=== PATIENT | female | born 1940 | race Caucasian/White ===

== ENCOUNTER 2017-07-25 15:00 | Observation (INO) ==
--- NOTE | 2017-07-25 15:19 | Emergency Department Note ---
Disposition Clinical Impression: Fall Disposition: Still a Patient Referrals: Monique Lay BIO MEDICAL TECHNICIAN [Primary Care Provider] - Forms: ED Satisfaction Letter General Adult HPI - General Chief complaint: ED Fall Stated complaint: Fall 8 Weeks ago/Headache since fall Time Seen by Provider: 07/25/17 15:05 Source: patient, EMS Limitations: no limitations Nursing Notes Reviewed: Yes Vital Signs Reviewed: Yes - History of Present Illness HPI Narrative: Ms. Martinez, extending 7-year-old female, presents from home via EMS for evaluation of a headache. Onset a few weeks ago after a fall in which she tripped and tumbled down a hill. Soon after the fall, she was evaluated by her ironer or presser who noted scleral hemorrhage. Patient did not present and has not been evaluated in the emergency department since the fall. Patient notes difficulty with ambulation described as her legs are weak and occasionally giving out. Regarding her headache, she describes it as frontal and seen posteriorly in the midline distribution down her neck. Throbbing, constant, present on waking up. No history of migraines. Patient's history of CVA and is currently on aspirin daily. ROS: Positive: Extremity weakness, headache with photophobia, neck pain Negative: Dyspnea, chest pain, back pain, diaphoresis. No other musculoskeletal complaints. Pain Scale: 10 - Related Data Home Medications Medication Instructions Recorded Confirmed Aspirin [Aspirin] 81 mg PO DAILY 08/27/15 08/27/15 ClonazePAM [Klonopin] 1 mg PO HS 08/27/15 08/27/15 Metoprolol [Lopressor] 100 mg PO DAILY 08/27/15 08/27/15 Sertraline [Zoloft] 100 mg PO HS 08/27/15 08/27/15 Previous Rx's Medication Instructions Recorded Ondansetron HCl [Zofran] 4 mg PO Q6HR PRN #10 tablet 08/27/15 levoFLOXacin [Levaquin] 500 mg PO DAILY #7 tablet 12/01/15 Clindamycin [Cleocin] 150 mg PO Q6HR #8 capsule 03/31/16 OxyCODONE Immed Rel [Roxicodone 5 5 - 10 mg PO Q6HR PRN #30 tablet 03/31/16 MG] predniSONE [Prednisone] 40 mg PO DAILY #10 tablet 08/23/16 Allergies Allergy/AdvReac Type Severity Reaction Status Date / Time milk Allergy Nausea Verified 12/01/15 16:18 peanuts Allergy Hives Uncoded 12/01/15 16:18 Past Medical History - Past Medical History Medical history: Reports: COPD, CVA, DVT, hypertension Surgical history: Reports: appendectomy, cholecystectomy, hysterectomy Psychiatric history: Reports: no psych history - Social History Smoking Status: Never smoker Smokeless Tobacco Status: No Alcohol use: Reports: none Drug use: Reports: none Physical Exam Vital Signs Reviewed General: Patient is alert, oriented, and in no acute distress. HEENT: No facial asymmetry. Head is normocephalic and atraumatic. PERRLA, EOMI. Nasal turbinates moist and pink. Posterior pharynx without exudates or cobblestoning. No lymphadenopathy. Cardiovascular: Heart regular rate and rhythm without clicks, rubs, gallops, or murmurs. No JVD. PMI nondisplaced. Respiratory: Symmetric chest rise with good respiratory effort. Bilateral breath sounds are clear without wheezing, crackles, or rhonchi. Abdomen: Bowel sounds present normoactive x-4 quadrants. Abdomen is soft, nondistended, and nontender. No organomegaly noted. Musculoskeletal: Muscle strength 5/5 and symmetric bilaterally in upper and lower extremities. DTRs 2/4 and symmetric bilaterally in upper and lower extremities. No midline C-spine, T-spine, L-spine, sacral tenderness. Neuro: Cranial nerves II through XII without deficit. Sensation light touch intact. Psych: Patient's affect is appropriate for situation. - General Limitations: no limitations General appearance: alert Course Course Narrative: Clinical concern is for possible C-spine fracture as well as intracranial bleed. Will CT head and neck. If negative, will symptomatically manage patient 's headache. Patient's imaging is negative for acute intracranial or cervical spine process as detailed below. While in the ER, she flagged down a staff member and noted she had chest pain. Will initiate cardiac workup. Patient signed out to the night team, Dr. Nickerson and Dr. Juarez, pending results of cardiac workup. Head CT 07/25/17 15:19 IMPRESSION: 1. No acute intracranial abnormality. D/ / London Goss MD / London Goss MD Interpreting Provider: London Goss MD Cervical Spine CT 07/25/17 15:27 IMPRESSION: 1. No acute abnormality of the cervical spine. 2. Chronic degenerative changes are discussed above. D/ / Chris Bray MD / Chris Bray MD Interpreting Provider: Chris Bray MD Vital Signs Temperature 98.2 F 07/25/17 15:02 Pulse Rate 61 07/25/17 15:02 Respiratory Rate 16 07/25/17 15:02 Blood Pressure 159/84 07/25/17 15:02 O2 Sat by Pulse Oximetry 96 07/25/17 15:02 Temperature 98.2 F 07/25/17 15:02 Pulse Rate 61 07/25/17 15:02 Respiratory Rate 16 07/25/17 15:02 Blood Pressure 159/84 07/25/17 15:02 O2 Sat by Pulse Oximetry 96 07/25/17 15:02 Oxygen Delivery Oxygen Delivery Room Air Medical Decision Making - Lab Data Result diagrams: 07/25/17 16:10 Lab Results 07/25/17 07/25/17 Range/Units 16:10 18:51 Sodium 142 (136-145) mEq/L Potassium 4.2 (3.5-4.5) mEq/L Chloride 107 (98-109) mEq/L Carbon Dioxide 27 (19-29) mEq/L BUN 15 (7-20) mg/dL Creatinine 0.83 (0.57-1.11) mg/dL Est GFR ( Amer) > 60 (> 60) Est GFR (Non-Af Amer) > 60 (> 60) BUN/Creatinine Ratio 18 (6-26) Glucose 90 (70-99) mg/dL Calculated Osmolality 294 (280-300) Calcium 9.3 (8.6-10.8) mg/dL Troponin I 0.00 (0-0.03) ng/mL Attestation Statement - Attestation Attestation: I examined this patient and my medical decision-making was reviewed with the Resident Physician. I agree with the documented findings, disposition and treatment plan as described except to the extent set forth below. Female patient is record 4 weeks ago. No anticoagulation use. Now having head and neck pain. CT scan of head and neck shows no acute findings. Will be medicated for headache. Postconcussive instructions and follow up with neurology provided
[2017-07-25 16:59] LABS: BUN/Creatinine Ratio 18 (6-26); Blood Urea Nitrogen 15 mg/dL (7-20); Calcium 9.3 mg/dL (8.6-10.8); Carbon Dioxide 27 mEq/L (19-29); Chloride 107 mEq/L (98-109); Glucose 90 mg/dL (70-99); Osmolality,Calculated 294 (280-300); Potassium 4.2 mEq/L (3.5-4.5); Sodium 142 mEq/L (136-145); eGFR For African Americans > 60 (> 60); eGFR For Non-African Americans > 60 (> 60)
[2017-07-25] MEDS ORDERED: Ketorolac 30 MG/ML VIAL IVP ONE (17:29)
[2017-07-25] MEDS ORDERED: Prochlorperazine 10 MG/2 ML VIAL IVP STA (17:30)
--- NOTE | 2017-07-25 19:06 | Emergency Department Note ---
Disposition Clinical Impression: Fall Qualifiers: Encounter type: subsequent encounter Qualified Code(s): W19.XXXD - Unspecified fall, subsequent encounter Chest pain Qualifiers: Chest pain type: unspecified Qualified Code(s): R07.9 - Chest pain, unspecified Disposition: Admitted As Inpatient Condition: Undetermined Time of Disposition: 20:09 General Adult HPI - General Chief complaint: ED Fall Stated complaint: Fall 8 Weeks ago/Headache since fall Time Seen by Provider: 07/25/17 15:05 Source: patient, EMS Mode of arrival: ambulatory Limitations: no limitations Nursing Notes Reviewed: Yes Vital Signs Reviewed: Yes - History of Present Illness HPI Narrative: 77-year-old female with history of hypertension and hyperlipidemia arrives to [facility] emergency department. Patient was signed out to me by the day team. The patient initially arrived roughly 5 weeks after a fall striking her head on the ground without LOC. The patient has been complaining of numerous days of headache since then. The patient actually has been evaluated by Dr. Sabillon in neurology who stated that there was no etiology. The patient received a CT scan of her head as well. The patient denies any other complaints upon arrival but during ED visit the patient states that she began complaining of left-sided chest pain with associated dyspnea. No other associated symptoms at that time. The patient denies any other complaints and is resting comfortably in bed. Onset (ago): minute(s) (30) Location: chest Radiation: other (Jaw) Pain Severity: moderate, severe Pain Scale: 10 Quality: crushing, dull Consistency: constant Improves with: nothing Worsens with: nothing Associated symptoms: Reports: chest pain, shortness of breath Treatments Prior to Arrival: none - Related Data Home Medications Medication Instructions Recorded Confirmed Aspirin [Aspirin] 81 mg PO DAILY 08/27/15 07/25/17 ClonazePAM [Klonopin] 1 mg PO BID PRN 08/27/15 07/25/17 Sertraline [Zoloft] 100 mg PO HS 08/27/15 07/25/17 Acetaminophen [Tylenol] 325 mg PO Q6HR PRN 07/25/17 07/25/17 Metoprolol Succinate 100 mg PO DAILY 07/25/17 07/25/17 Multivitamin [Multi-Day Vitamins] 1 each PO DAILY 07/25/17 07/25/17 Allergies Allergy/AdvReac Type Severity Reaction Status Date / Time milk Allergy Nausea Verified 12/01/15 16:18 peanuts Allergy Hives Uncoded 12/01/15 16:18 All systems ED: reviewed and negative except as stated. Constitutional: Denies: fever, chills, weakness, weight change Eyes: Denies: eye pain, eye discharge, vision change ENT ED: Denies: ear pain, throat pain, dental pain, hearing loss, epistaxis, congestion, dysphagia Cardiovascular: Reports: chest pain. Denies: palpitations, dyspnea on exertion , edema, syncope Respiratory: Reports: dyspnea. Denies: cough, wheezes, hemoptysis, stridor Gastrointestinal: Denies: abdominal pain, nausea, vomiting, diarrhea, constipation, hematemesis, melena, hematochezia Genitourinary: Denies: dysuria, frequency, hematuria, discharge Musculoskeletal: Denies: back pain, neck pain, arthralgia, myalgia Neurological: Reports: headache. Denies: weakness, numbness, paresthesias, confusion, abnormal gait, vertigo Past Medical History - Past Medical History Attestation: Yes The following information was validated with the patient. Source: patient Medical history: Reports: COPD, CVA, DVT, hypertension Surgical history: Reports: appendectomy, cholecystectomy, hysterectomy Psychiatric history: Reports: no psych history - Social History Smoking Status: Never smoker Smokeless Tobacco Status: No Alcohol use: Reports: none Drug use: Reports: none Physical Exam - General Limitations: no limitations General appearance: alert, in no apparent distress - Head Head exam: atraumatic, normocephalic, normal inspection - Eye Eye exam: Present: normal appearance, PERRL, EOMI - ENT ENT exam: normal exam, normal oropharynx, mucous membranes moist - Neck Neck exam: Present: normal inspection, full ROM, trachea midline - Chest Chest inspection: Present: normal inspection, symmetric chest wall rise - Respiratory Respiratory exam: Present: normal lung sounds bilaterally - Cardiovascular Cardiovascular exam: Present: regular rate, normal rhythm, normal heart sounds - Abdominal Exam Abdominal exam: Present: soft, Non-Tender. Absent: tenderness, distention, guarding, rebound, rigidity - Extremities Exam Extremities exam: Present: normal inspection, full ROM. Absent: tenderness, pedal edema - Neurological Exam Neurological exam: Present: alert, oriented X3, CN II-XII intact, normal gait - Skin Skin exam: Present: warm, dry, intact, normal color Course Vital Signs Temperature 98.2 F 07/25/17 15:02 Pulse Rate 61 07/25/17 15:02 Respiratory Rate 16 07/25/17 15:02 Blood Pressure 159/84 07/25/17 15:02 O2 Sat by Pulse Oximetry 96 07/25/17 15:02 Temperature 98.2 F 07/25/17 15:02 Pulse Rate 61 07/25/17 15:02 Respiratory Rate 16 07/25/17 15:02 Blood Pressure 159/84 07/25/17 15:02 O2 Sat by Pulse Oximetry 96 07/25/17 15:02 Oxygen Delivery Oxygen Delivery Room Air Medical Decision Making - MDM Narrative Medical decision making narrative: Given patient's previous medical history of hypertension hyperlipidemia combined with her age, we will admit the patient to the hospital for training troponins and further workup. The patient agrees to this plan. We will administer aspirin here in the emergency department. EKG demonstrates no acute changes, troponin is negative as well as BMP for any acute changes. The patient is accepted by Dr. Stewart. - Medical Records Medical records reviewed: Yes I reviewed the patient's medical records. - Lab Data Lab results reviewed: Yes I reviewed the patient's lab results. Result diagrams: 07/25/17 16:10 Lab Results 07/25/17 07/25/17 Range/Units 16:10 18:51 Sodium 142 (136-145) mEq/L Potassium 4.2 (3.5-4.5) mEq/L Chloride 107 (98-109) mEq/L Carbon Dioxide 27 (19-29) mEq/L BUN 15 (7-20) mg/dL Creatinine 0.83 (0.57-1.11) mg/dL Est GFR ( Amer) > 60 (> 60) Est GFR (Non-Af Amer) > 60 (> 60) BUN/Creatinine Ratio 18 (6-26) Glucose 90 (70-99) mg/dL Calculated Osmolality 294 (280-300) Calcium 9.3 (8.6-10.8) mg/dL Troponin I 0.00 (0-0.03) ng/mL - Radiology Data Radiology results reviewed: Yes I reviewed the patient's radiology results. - EKG Data EKG #1 EKG attestation: Yes I reviewed and interpreted this EKG. EKG results narrative: Heart rate 56 bpm. ND interval 178 ms. QTC 417 ms. Normal axis. Sinus bradycardia. No ST elevation or ST depression noted. Similar EKG from 2016. No acute changes noted. Attestation Statement - Attestation Attestation: I, Gray Nickerson MD, personally evaluated this patient and discussed their management with the resident physician. I reviewed the resident's note and agree with the documented findings, medical decision making, and plan of care. This patient was signed out at shift change from Dr. Taylor and Dr. Carnes. Please refer to their notes for complete details of history and physical examination. Patient presented with complaint of headaches after a fall several weeks ago. She had a head CT and cervical spine CT which was negative regarding this complaint. Patient however also complained of intermittent substernal and left- sided chest pain which she describes as like a brick on her chest. She denies any chest pain at present. She states that when she gets these episodes of chest pain last about an hour and she also has tightness in her throat. No shortness of breath. She does have some episodes of diaphoresis but not necessarily associated with the chest pain. No radiation down the arm or to the back. She denies any prior history of heart disease. At shift change she is awaiting workup and final disposition. On examination patient is a well-developed well-nourished elderly female in no acute distress. She is alert and oriented 3. There is no cyanosis. There is some mild tenderness to palpation over the left anterior chest wall. Breath sounds are clear and equal bilaterally. Heart regular rate and rhythm. Abdomen is soft and nontender with normal bowel sounds. No pedal edema. No gross focal neurological deficits. Labs reviewed. Troponin 0.00. The hospitalist, Dr. Hamilton, was consulted and accepted admission of the patient. Heart Score - Score History: Slightly Suspicious EKG: Normal Age: Greater than 65 Risk Factors: 1-2 risk factors Troponin: Less than normal limit HEART Score Total: 3
[2017-07-25] MEDS ORDERED: Aspirin 325 MG TABLET PO ONE (20:26)
[2017-07-25] MEDS ORDERED: Acetaminophen 325 MG TABLET PO PRN (22:55)
[2017-07-25] MEDS ORDERED: Naloxone 0.4 MG/ML INJ IVP PRN (22:55)
[2017-07-25] MEDS ORDERED: clonazePAM 1 MG TABLET PO PRN (22:59)
[2017-07-26 02:11] LABS: Basophils % 0.2 %; Eosinophils # 0.3 K/mcL (0.0-0.6); Eosinophils % 4.2 %; Hematocrit 41.5 % (35.3-44.9); Hemoglobin 13.9 g/dL (11.5-15.4); Immature Granulocytes % 0.2 % (0-4); Lymphocytes % 36.9 %; Mean Corpuscular HGB Conc 33.5 g/dL (31.6-35.5); Mean Corpuscular Hemoglobin 27.6 pg (28.0-33.3); Mean Corpuscular Volume 82.3 fL (83.0-100.0); Mean Platelet Volume 10.5 fL (9.4-12.4); Monocytes # 0.8 K/mcL (0.0-1.3); Monocytes % 9.3 %; Platelet Count 188 K/mcL (140-400); Red Blood Count 5.04 M/mcL (3.82-4.97); Red Cell Distribution Width 14.3 % (11.5-14.5); Segmented Neutrophils % 49.2 %
[2017-07-26 02:28] LABS: BUN/Creatinine Ratio 18 (6-26); Blood Urea Nitrogen 15 mg/dL (7-20); Carbon Dioxide 28 mEq/L (19-29); Chloride 107 mEq/L (98-109); Glucose 131 mg/dL (70-99); Osmolality,Calculated 297 (280-300); Potassium 3.3 mEq/L (3.5-4.5); Sodium 142 mEq/L (136-145); eGFR For African Americans > 60 (> 60); eGFR For Non-African Americans > 60 (> 60)
--- NOTE | 2017-07-26 03:42 | Internal Med History&Physical ---
Date of Encounter: 07/25/17 Time of Encounter: 21:00 Assessment and Plan (1) Hypertension Current visit: Yes Status: Acute Continue home medications. BP is stable Qualifiers: Hypertension type: essential hypertension Qualified Code(s): I10 - Essential (primary) hypertension (2) Fall Current visit: Yes Status: Acute We will place patient on physical therapy/occupational therapy evaluation Qualifiers: Encounter type: subsequent encounter Qualified Code(s): W19.XXXD - Unspecified fall, subsequent encounter (3) Chest pain Current visit: Yes Status: Acute Patient has chest wall tenderness. Chest the pain is gradually onset. Probably skeletal muscular pain. However need to rule out ACS - We will place patient on continuous cardiac monitoring. - 3 sets of troponin. - Echo in a.m. - Naproxen 250 mg by mouth twice a day at this point. Qualifiers: Chest pain type: intercostal pain Qualified Code(s): R07.82 - Intercostal pain Internal Medicine - H&P: HPI Chief complaint: Fall Admitted From: Home Plans for Post Hospital Care: Home History of present illness: Ms. Martinez is a 77 year old female with history of hypertension and hyperlipidemia present to ER for fall. Actually the fall was 5 weeks ago. However, in ER patient complaint left side chest pain. When I saw patient, she complained of left-sided chest ache. She said the pain started gradually in the afternoon, dull, constant, 8/10 initially, 6/10 when I saw her. Patient denies shortness of breath, nausea, diaphoresis, fever, or cough. Patient was admitted to rule out ACS. Past Med Surg Social Fam HX - Past Medical History Medical history: COPD, CVA, DVT, hypertension Psychiatric history: no psych history - Past Surgical History Surgical History: appendectomy, cholecystectomy, hysterectomy - Social History Smoking Status: Never smoker Smokeless Tobacco Status: No Alcohol use: none Drug use: none - Family History Mother Adopted: [place]: [place] Family Member Ethnicity: Non- Living Status: Age at : 63 Cause of : CA Hx Family Cardiac Disorders: Yes Hx Family Respiratory Disorders: No Hx Family Cancer: No Hx Family GI Disorders: Yes Hx Family Genitourinary Disorders: No Hx Family Endocrine Disorder: No Hx Family Musculoskeletal Disorders: No Hx Family Neuromuscular Disorders: No Hx Family Neurologic Disorders: No Hx Family HEENT Disorders: No Hx Family Autoimmune Disorders: No Hx Family Reproductive Disorders: No Hx Family Psychosocial Disorders: No Hx Family Medical Disorders: No Internal Medicine - H&P: Meds Aspirin [Aspirin] 81 mg PO DAILY 08/27/15 [History] ClonazePAM [Klonopin] 1 mg PO BID PRN 08/27/15 [History] Sertraline [Zoloft] 100 mg PO HS 08/27/15 [History] Acetaminophen [Tylenol] 325 mg PO Q6HR PRN 07/25/17 [History] Metoprolol Succinate 100 mg PO DAILY 07/25/17 [History] Multivitamin [Multi-Day Vitamins] 1 each PO DAILY 07/25/17 [History] 3 Allergy/AdvReac Type Severity Reaction Status Date / Time milk Allergy Nausea Verified 12/01/15 16:18 peanuts Allergy Hives Uncoded 12/01/15 16:18 All Systems PM: A 10-system review of systems was performed and is negative for pertinent findings except as documented above in the HPI. - Constitutional Vitals: Temp Pulse Resp BP Pulse Ox 97.7 F 55 16 124/68 93 07/25/17 22:59 07/25/17 22:59 07/25/17 22:59 07/25/17 22:59 07/25/17 22:59 General appearance: Present: A&O X 3, no acute distress, answers questions appropriately - Head Head exam: Present: atraumatic, normocephalic - Eye Eye exam: Present: PERRL, conjuntiva pink, sclera anicteric Pupils: Present: PERRL - Neck Neck exam general surgery: Present: supple, trachea midline. Absent: lymphadenopathy - Respiratory Respiratory exam: Present: chest wall tenderness, CTAB. Absent: accessory muscle use, rales, rhonchi, wheezes - Cardiovascular Cardiovascular exam: Present: RRR, +S1, +S2. Absent: diastolic murmur, gallop, rubs, systolic murmur - GI/Abdominal GI/Abdominal exam: Present: normal bowel sounds, soft, no peritoneal signs. Absent: distended, tenderness - Extremities Exam Extremities exam: Present: warm, radial pulses palpable and symmetrical. Absent : calf tenderness, cyanotic, pedal edema - Neurological Exam Neurological exam: Present: CN II-XII intact, oriented X3, no focal deficits. Absent: pronater drift, facial droop, speech deficit - Skin Skin exam: Present: dry, intact Internal Med - H&P Results - Labs CBC & Chem 7: 07/26/17 01:30 07/26/17 01:30 Labs: Short CBC 07/26/17 Range/Units 01:30 WBC 8.1 (4.3-11.1) K/mcL Hgb 13.9 (11.5-15.4) g/dL Hct 41.5 (35.3-44.9) % Plt Count 188 (140-400) K/mcL Neutrophils # 4.0 (1.6-8.9) K/mcL BMP 07/26/17 01:30 Sodium 142 Potassium 3.3 L Chloride 107 Carbon Dioxide 28 BUN 15 Creatinine 0.83 Glucose 131 H Calcium 9.0 Cardiac Enzymes 07/26/17 Range/Units 01:30 Troponin I 0.00 (0-0.03) ng/mL - EKG Data -: EKG Interpreted by Myself EKG shows normal: sinus rhythm Rate: normal
[2017-07-26] MEDS ORDERED: *HR* Heparin 5,000 UNIT/ML VIAL SQ SCH (06:00)
[2017-07-26] MEDS ORDERED: Metoprolol XL (24 HR) Succ 50 MG TAB.ER.24H PO SCH (09:00)
[2017-07-26] MEDS ORDERED: Multivit/Ca/Min/Fe/FA 1 TAB TABLET PO SCH (09:00)
[2017-07-26] MEDS ORDERED: Aspirin 81 MG TAB.CHEW PO SCH (09:00)
[2017-07-26 14:59] VITALS: BP 122/77
--- NOTE | 2017-07-26 15:23 | Discharge Summary ---
Date of Encounter: 07/26/17 Time of Encounter: 14:30 - Discharge Diagnosis (1) Chest pain Priority: Primary Status: Acute Comments: Pt denies chest pain currently. Pt states that she has had the same chest pain for "well over a year". She states that she has the chest pain when she is worried about something or "when I don't get my way." Troponins negative, chest xray negative for acute processes, echo showed LVEF 60 %, normal systolic function, mild LV DD, no pulmonary hypertension. Pt will continue her home medications, BB ASA, and Klonipin and Zoloft for anxiety. Qualifiers: Chest pain type: intercostal pain Qualified Code(s): R07.82 - Intercostal pain (2) Fall Priority: Secondary Status: Acute Comments: pt states that she fell at home about 5-6 weeks ago. She reports constant global headache with vision changes for the last week and a half. Attempted to see PCP, but was unable to get an appointment. States that she took OTC without relief. She says that her headache has resolved and is unsure what made it better, denies pain or vision changes currently. Denies other injury from fall. Qualifiers: Encounter type: subsequent encounter Qualified Code(s): W19.XXXD - Unspecified fall, subsequent encounter (3) Hypertension Priority: Secondary Status: Chronic Comments: Chronic. Well controlled. Continue home medications. Qualifiers: Hypertension type: essential hypertension Qualified Code(s): I10 - Essential (primary) hypertension - Discharge Medications Home Medications: Aspirin 81 mg PO DAILY 08/27/15 [History] ClonazePAM [Klonopin] 1 mg PO BID PRN 08/27/15 [History] Sertraline [Zoloft] 100 mg PO HS 08/27/15 [History] Acetaminophen [Tylenol] 325 mg PO Q6HR PRN 07/25/17 [History] Metoprolol Succinate 100 mg PO DAILY 07/25/17 [History] Multivitamin [Multi-Day Vitamins] 1 each PO DAILY 07/25/17 [History] Allergies/Adverse Reactions: 3 Allergy/AdvReac Type Severity Reaction Status Date / Time milk Allergy Nausea Verified 12/01/15 16:18 peanuts Allergy Hives Uncoded 12/01/15 16:18 Procedures/tests Complete & Pending: Procedures Performed prior 72 hours Category Date Time Status EV echocardiogram Routine Y 07/26/17 23:00 Completed Date of admission: 07/25/17 20:16 Primary care physician: Monique Lay, Consults: 07/25/17 22:58 Consult to Occupational Therapy [CONS] Routine Comment: Evaluate, develop and implement POC Reason for Consult: Fall Consult to Physical Therapy [CONS] Routine Comment: Evaluate, develop and implement POC Reason for Consult: Fall Discharging clinician: Isabelle Rey Anticipated date of discharge: 07/26/17 - Patient Status Disposition: Home, Self-Care Condition: Good Functional capacity at discharge: independent ambulation Overall status at discharge: patient is back to baseline - Discharge Instructions Follow Up With: Monique Lay, [employer] [Primary Care Provider] - 08/02/17 9:30 am Additional Instructions: Follow up with your PCP as scheduled. Resume your normal home medications Resume your normal activities as tolerated. Return to the ER as needed for any changes or worsening condition or for any other problems or concerns. - Diet and Activity Activity: increase activity as tolerated Diet: advance to your usual diet Hospital course: Ms. Martinez is a 77 year old female past medical history of hypertension, migraines, and anxiety. She presented to the emergency department with complaint of chest pain and fall. Fall occurred 5 weeks ago, she has no visible injuries and denies pain. She does complain of persistent, constant global headache that was unrelieved by [id number] medications. Attempted to get into her primary care office was unable to get an appointment. She also complained of left-sided chest ache. She said the pain started gradually on the afternoon was dull without radiation, no nausea, vomiting, diaphoresis. She did report shortness of breath. Chest x-ray was negative, troponins were negative, echocardiogram with LVEF of 60% normal systolic function, mild diastolic dysfunction of the LV, no pulmonary hypertension. She denies chest pain. She states her chest pain is the same that she has had for well over a year per her account. She says her pain normally happens when she does not get her way or when she is worried about something. She denies any precipitating factors that she is aware of prior to arrival. I believe that most likely his chest pain is related to anxiety in some fashion. She also reports a global headache for about a week and a half. Patient has been seen by Dr. Sabillon, neurology, there is no known etiology. Patient had a CAT scan arrival that was negative. She now states that headache has resolved, she is unsure what made it better. In relation to the fall, patient also had a C-spine CT that was negative for any acute changes , positive for chronic degenerative changes. Patient has mild hypokalemia, 3.3. She has been treated with 40 mEq of potassium chloride prior to discharge. Patient's was seen by physical therapy and occupational therapy was found to have no needs. Pt is stable and ready to be discharged. - Time Spent with Patient Total time spent providing and/or coordinating discharge services: Less than 30 minutes - Constitutional Vitals: Temp Pulse Resp BP Pulse Ox 97.6 F 66 15 122/77 92 07/26/17 14:58 07/26/17 14:58 07/26/17 14:58 07/26/17 14:58 07/26/17 14:58 General appearance: Present: A&O X 3, pleasant, no acute distress, answers questions appropriately - Head Head exam: Present: atraumatic, normal inspection, normocephalic - Eye Eye exam: Present: normal appearance, conjuntiva pink - ENT ENT exam: Present: mucous membranes moist, normal exam, normal external ear exam - Neck Neck exam general surgery: Present: normal inspection, supple, trachea midline. Absent: lymphadenopathy, tenderness - Respiratory Respiratory exam: Present: CTAB. Absent: accessory muscle use, chest wall tenderness, decreased breath sounds, rales, rhonchi, stridor, wheezes - Cardiovascular Cardiovascular exam: Present: RRR, +S1, +S2. Absent: diastolic murmur, gallop, rubs, systolic murmur - GI/Abdominal GI/Abdominal exam: Present: normal bowel sounds, soft. Absent: distended, hepatomegaly, tenderness - Extremities Exam Extremities exam: Present: normal capillary refill, warm, radial pulses palpable and symmetrical. Absent: calf tenderness, cyanotic, pedal edema, tenderness - Neurological Exam Neurological exam: Present: alert, oriented X3, no focal deficits. Absent: facial droop, speech deficit - Skin Skin exam: Present: dry, intact, normal color, warm. Absent: rash
--- NOTE | 2017-07-26 16:37 | Electrocardiograph Report ---
[place] [id number] Test Date: 2017-07-25 Pat Name: Kayli Martinez Department: 104 Room: 3B48 Gender: F [employer] Servicer: AM : 1940 Requested By: Navi Carnes Order Number: [id number] Reading MD: Rochelle Ann Measurements Intervals [place] Rate: 56 P: 32 SD: 178 QRS: -12 QRSD: 90 T: 11 QT: 425 QTc: 417 Interpretive Statements SINUS BRADYCARDIA Electronically Signed On 07-26-2017 16:35:39 EDT by Rochelle Ann
== END 2017-07-26 16:11 | disposition home or self-care (01) ==
LOC: 3BNU 15:00 → EMEROO 15:00 → 3BNU 21:29
PROVIDERS: ADMIT Internal Medicine; ATTEND Registered Nurse

== ENCOUNTER 2019-08-26 16:43 | Observation (INO) ==
[2019-08-26] MEDS ORDERED: Aspirin 81 MG TAB.CHEW PO ONE (17:00)
[2019-08-26 17:41] LABS: Basophils % 0.5 %; Eosinophils # 0.7 K/mcL (0.0-0.6); Eosinophils % 8.7 %; Hematocrit 42.9 % (35.3-44.9); Hemoglobin 13.8 g/dL (11.5-15.4); Immature Granulocytes % 0.2 % (0-4); Lymphocytes # 3.3 K/mcL (0.6-4.6); Lymphocytes % 38.8 %; Mean Corpuscular HGB Conc 32.2 g/dL (31.6-35.5); Mean Corpuscular Hemoglobin 27.1 pg (28.0-33.3); Mean Corpuscular Volume 84.1 fL (83.0-100.0); Mean Platelet Volume 10.3 fL (9.4-12.4); Monocytes # 0.7 K/mcL (0.0-1.3); Monocytes % 8.7 %; Neutrophils # 3.7 K/mcL (1.6-8.9); Platelet Count 182 K/mcL (140-400); Red Cell Distribution Width 14.4 % (11.5-14.5); Segmented Neutrophils % 43.1 %; White Blood Count 8.5 K/mcL (4.3-11.1)
[2019-08-26 17:51] LABS: Prothrombin Time 10.9 Seconds (9.4-12.1)
[2019-08-26 17:54] LABS: Activated Partial Thrombo Time 32.2 Seconds (26.0-36.0)
[2019-08-26 18:02] LABS: BUN/Creatinine Ratio 18 (6-26); Blood Urea Nitrogen 16 mg/dL (8-23); Calcium 9.2 mg/dL (8.6-10.3); Carbon Dioxide 27 mEq/L (23-29); Chloride 107 mEq/L (98-107); Glucose 88 mg/dL (70-105); Osmolality,Calculated 295 (280-300); Sodium 142 mEq/L (136-145); eGFR For African Americans > 60 (> 60); eGFR For Non-African Americans > 60 (> 60)
[2019-08-26 18:10] LABS: Troponin I < 0.03 ng/mL (< 0.04)
[2019-08-26] MEDS ORDERED: Naloxone 0.4 MG/ML INJ IVP PRN (19:17)
[2019-08-26] MEDS ORDERED: clonazePAM 1 MG TABLET PO PRN (19:20)
[2019-08-27] MEDS ORDERED: clonazePAM 1 MG TABLET PO PRN (00:03)
[2019-08-27] MEDS: *HR* Heparin 5,000 UNIT/ML VIAL SQ SCH ×2 (05:53→16:04)
[2019-08-27 07:04] LABS: Hematocrit 43.4 % (35.3-44.9); Mean Corpuscular HGB Conc 32.3 g/dL (31.6-35.5); Mean Corpuscular Hemoglobin 27.7 pg (28.0-33.3); Mean Corpuscular Volume 85.9 fL (83.0-100.0); Mean Platelet Volume 10.3 fL (9.4-12.4); Platelet Count 175 K/mcL (140-400); Red Blood Count 5.05 M/mcL (3.82-4.97); Red Cell Distribution Width 14.6 % (11.5-14.5); White Blood Count 7.9 K/mcL (4.3-11.1)
[2019-08-27 07:27] LABS: BUN/Creatinine Ratio 16 (6-26); Blood Urea Nitrogen 13 mg/dL (8-23); Calcium 9.2 mg/dL (8.6-10.3); Carbon Dioxide 28 mEq/L (23-29); Chloride 106 mEq/L (98-107); Chol/HDL Ratio 7.5 (0-4.9); Cholesterol 263 mg/dL (< 200); Glucose 102 mg/dL (70-105); HDL Cholesterol 35 mg/dL (40-59); LDL Cholesterol,Calculated 186 mg/dL (0-99); Osmolality,Calculated 294 (280-300); Potassium 3.6 mEq/L (3.5-5.1); Sodium 142 mEq/L (136-145); Triglycerides 210 mg/dL (< 150); Troponin I < 0.03 ng/mL (< 0.04); eGFR For African Americans > 60 (> 60); eGFR For Non-African Americans > 60 (> 60)
[2019-08-27] MEDS ORDERED: Metoprolol XL (24 HR) Succ 50 MG TAB.ER.24H PO SCH (09:00)
[2019-08-27] MEDS ORDERED: Regadenoson 0.4 MG/5 ML SYRINGE IVP ONE (09:13)
[2019-08-27 13:01] VITALS: BP 150/100
== END 2019-08-27 17:11 | disposition home health service (06) ==
LOC: EMEROOARM 16:43 → CDU 16:43 → SUATTDRO 19:21 → CDU 19:42
PROVIDERS: ADMIT Pharmacist; ATTEND Student in an Organized Health Care Education/Training Program

== ENCOUNTER 2019-09-30 15:17 | Observation (INO) ==
[2019-09-30 16:01] LABS: Basophils % 0.2 %; Eosinophils # 0.3 K/mcL (0.0-0.6); Eosinophils % 2.9 %; Hematocrit 40.9 % (35.3-44.9); Hemoglobin 13.9 g/dL (11.5-15.4); Immature Granulocytes % 0.3 % (0-4); Lymphocytes # 2.1 K/mcL (0.6-4.6); Lymphocytes % 23.1 %; Mean Corpuscular Hemoglobin 27.6 pg (28.0-33.3); Mean Corpuscular Volume 81.3 fL (83.0-100.0); Mean Platelet Volume 9.5 fL (9.4-12.4); Monocytes # 0.7 K/mcL (0.0-1.3); Monocytes % 7.2 %; Platelet Count 296 K/mcL (140-400); Red Blood Count 5.03 M/mcL (3.82-4.97); Red Cell Distribution Width 13.3 % (11.5-14.5); Segmented Neutrophils % 66.3 %; White Blood Count 9.1 K/mcL (4.3-11.1)
[2019-09-30 16:06] LABS: INR 1.1; Prothrombin Time 12.3 Seconds (9.4-12.1)
[2019-09-30 16:18] LABS: BUN/Creatinine Ratio 17 (6-26); Blood Urea Nitrogen 15 mg/dL (8-23); Calcium 9.1 mg/dL (8.6-10.3); Carbon Dioxide 28 mEq/L (23-29); Chloride 101 mEq/L (98-107); Glucose 111 mg/dL (70-105); Osmolality,Calculated 288 (280-300); Potassium 3.7 mEq/L (3.5-5.1); Sodium 138 mEq/L (136-145); eGFR For African Americans > 60 (> 60); eGFR For Non-African Americans > 60 (> 60)
[2019-09-30 16:25] LABS: Troponin I < 0.03 ng/mL (< 0.04)
[2019-09-30] MEDS ORDERED: Acetaminophen 325 MG TABLET PO PRN (18:06)
[2019-09-30] MEDS ORDERED: Ondansetron 4 MG/2 ML VIAL IVP PRN (18:06)
[2019-09-30] MEDS ORDERED: Naloxone 0.4 MG/ML INJ IVP PRN (18:06)
[2019-09-30] MEDS: clonazePAM 1 MG TABLET PO SCH (23:32)
[2019-10-01 07:35] LABS: BUN/Creatinine Ratio 16 (6-26); Blood Urea Nitrogen 13 mg/dL (8-23); Calcium 9.2 mg/dL (8.6-10.3); Carbon Dioxide 23 mEq/L (23-29); Chloride 101 mEq/L (98-107); Glucose 106 mg/dL (70-105); Magnesium 2.3 mg/dL (1.6-2.6); Osmolality,Calculated 291 (280-300); Potassium 3.9 mEq/L (3.5-5.1); Sodium 140 mEq/L (136-145); Troponin I < 0.03 ng/mL (< 0.04); eGFR For African Americans > 60 (> 60); eGFR For Non-African Americans > 60 (> 60)
[2019-10-01] MEDS: clonazePAM 1 MG TABLET PO SCH (08:37)
[2019-10-01 11:49] VITALS: BP 133/78
== END 2019-10-01 14:30 | disposition home or self-care (01) ==
LOC: EMEROOARM 15:17 → 3BNU 15:17 → SUATTDRO 17:01 → 3BNU 18:51
PROVIDERS: ADMIT Internal Medicine; ATTEND Internal Medicine

== ENCOUNTER 2020-12-26 12:53 | Observation (INO) ==
[2020-12-26 13:51] LABS: Basophils % 0.5 %; Eosinophils # 0.5 K/mcL (0.0-0.6); Eosinophils % 6.2 %; Hematocrit 41.6 % (35.3-44.9); Hemoglobin 13.4 g/dL (11.5-15.4); Immature Granulocytes % 0.3 % (0-4); Lymphocytes # 2.4 K/mcL (0.6-4.6); Lymphocytes % 30.7 %; Mean Corpuscular HGB Conc 32.2 g/dL (31.6-35.5); Mean Corpuscular Hemoglobin 27.6 pg (28.0-33.3); Mean Corpuscular Volume 85.8 fL (83.0-100.0); Mean Platelet Volume 10.1 fL (9.4-12.4); Monocytes # 0.7 K/mcL (0.0-1.3); Monocytes % 8.8 %; Neutrophils # 4.3 K/mcL (1.6-8.9); Platelet Count 182 K/mcL (140-400); Red Blood Count 4.85 M/mcL (3.82-4.97); Red Cell Distribution Width 13.6 % (11.5-14.5); Segmented Neutrophils % 53.5 %; White Blood Count 7.9 K/mcL (4.3-11.1)
[2020-12-26 14:15] LABS: BUN/Creatinine Ratio 29 (6-26); Blood Urea Nitrogen 22 mg/dL (8-23); Calcium 9.2 mg/dL (8.6-10.3); Carbon Dioxide 26 mEq/L (23-29); Chloride 106 mEq/L (98-107); Glucose 108 mg/dL (70-105); Osmolality,Calculated 296 (280-300); Potassium 3.6 mEq/L (3.5-5.1); Sodium 141 mEq/L (136-145); eGFR For African Americans > 60 (> 60); eGFR For Non-African Americans > 60 (> 60)
[2020-12-26 14:16] LABS: Troponin I < 0.03 ng/mL (< 0.04)
[2020-12-26 15:06] LABS: Bilirubin,Urine Negative (Negative); Blood,Urine Negative (Negative); Clarity,Urine Clear (Clear); Color,Urine Colorless (Yellow); Glucose,Urine (UA) Normal (Normal); Ketones,Urine Negative (Negative); Leukocyte Esterase,Urine Negative (Negative); Nitrite,Urine Negative (Negative); Protein,Urine Negative (Neg-Trace); Specific Gravity,Urine 1.012 (1.010-1.025); Urobilinogen,Urine Normal (Normal)
[2020-12-26] MEDS ORDERED: Naloxone 0.4 MG/ML INJ IVP PRN (15:40)
[2020-12-26] MEDS ORDERED: Acetaminophen 325 MG TABLET PO PRN (15:40)
[2020-12-26] MEDS ORDERED: Ondansetron ODT 4 MG TAB.RAPDIS SL PRN (15:40)
[2020-12-26] MEDS ORDERED: Perflutren Lipid Microsphere 1.3 ML in 0.9 % Sodium Chloride 8.7 ML IVP PRN (15:46)
[2020-12-26] MEDS: amLODIPine 5 MG TABLET PO SCH (21:54)
[2020-12-26] MEDS: Thiamine (B-1) 100 MG TABLET PO SCH (21:54)
[2020-12-27 05:23] LABS: Hematocrit 43.8 % (35.3-44.9); Hemoglobin 14.1 g/dL (11.5-15.4); Mean Corpuscular HGB Conc 32.2 g/dL (31.6-35.5); Mean Corpuscular Hemoglobin 27.1 pg (28.0-33.3); Mean Corpuscular Volume 84.2 fL (83.0-100.0); Mean Platelet Volume 10.4 fL (9.4-12.4); Platelet Count 194 K/mcL (140-400); Red Cell Distribution Width 13.8 % (11.5-14.5); White Blood Count 7.3 K/mcL (4.3-11.1)
[2020-12-27 05:39] LABS: BUN/Creatinine Ratio 24 (6-26); Blood Urea Nitrogen 15 mg/dL (8-23); Calcium 8.9 mg/dL (8.6-10.3); Carbon Dioxide 26 mEq/L (23-29); Chloride 107 mEq/L (98-107); Chol/HDL Ratio 5.4 (0-4.9); Cholesterol 275 mg/dL (< 200); Glucose 95 mg/dL (70-105); HDL Cholesterol 51 mg/dL (40-59); LDL Cholesterol,Calculated 188 mg/dL (< 100); Magnesium 2.2 mg/dL (1.6-2.6); Osmolality,Calculated 295 (280-300); Potassium 3.5 mEq/L (3.5-5.1); Sodium 142 mEq/L (136-145); Triglycerides 181 mg/dL (< 150); eGFR For African Americans > 60 (> 60); eGFR For Non-African Americans > 60 (> 60)
[2020-12-27] MEDS: *HR* Enoxaparin 40 MG/0.4 ML SYRINGE SQ SCH (05:42)
[2020-12-27 06:06] LABS: Folate 14.5 ng/mL (3.0-16.0)
[2020-12-27] MEDS: Cyanocobalamin (B-12) 1,000 MCG/ML VIAL IM SCH (08:17)
[2020-12-27] MEDS: amLODIPine 5 MG TABLET PO SCH (08:17)
[2020-12-27] MEDS: Thiamine (B-1) 100 MG TABLET PO SCH (08:17)
[2020-12-27 13:14] LABS: Thyroid Stimulating Hormone 4.732 mcIU/mL (0.340-5.600)
[2020-12-27] MEDS ORDERED: *HR* LORazepam 1 MG TABLET PO ONE (16:53)
[2020-12-27] MEDS ORDERED: Haloperidol Lactate 5 MG/ML VIAL IVP PRN (17:26)
[2020-12-28 04:21] LABS: Hematocrit 44.7 % (35.3-44.9); Hemoglobin 14.3 g/dL (11.5-15.4); Mean Corpuscular Hemoglobin 27.1 pg (28.0-33.3); Mean Corpuscular Volume 84.8 fL (83.0-100.0); Mean Platelet Volume 9.8 fL (9.4-12.4); Platelet Count 201 K/mcL (140-400); Red Blood Count 5.27 M/mcL (3.82-4.97); White Blood Count 7.8 K/mcL (4.3-11.1)
[2020-12-28 04:37] LABS: BUN/Creatinine Ratio 31 (6-26); Blood Urea Nitrogen 26 mg/dL (8-23); Calcium 9.1 mg/dL (8.6-10.3); Carbon Dioxide 26 mEq/L (23-29); Chloride 107 mEq/L (98-107); Glucose 94 mg/dL (70-105); Osmolality,Calculated 297 (280-300); Potassium 3.4 mEq/L (3.5-5.1); Sodium 141 mEq/L (136-145); eGFR For African Americans > 60 (> 60); eGFR For Non-African Americans > 60 (> 60)
[2020-12-28] MEDS: *HR* Enoxaparin 40 MG/0.4 ML SYRINGE SQ SCH (05:37)
[2020-12-28] MEDS: Cyanocobalamin (B-12) 1,000 MCG/ML VIAL IM SCH (08:50)
[2020-12-28] MEDS: Thiamine (B-1) 100 MG TABLET PO SCH (08:50)
[2020-12-28] MEDS: amLODIPine 5 MG TABLET PO SCH (08:50)
[2020-12-29] MEDS: *HR* Enoxaparin 40 MG/0.4 ML SYRINGE SQ SCH (04:43)
[2020-12-29] MEDS ORDERED: amLODIPine 5 MG TABLET PO SCH (09:00)
[2020-12-29] MEDS: Cyanocobalamin (B-12) 1,000 MCG/ML VIAL IM SCH (09:43)
[2020-12-29] MEDS: Thiamine (B-1) 100 MG TABLET PO SCH (09:43)
[2020-12-29 11:00] VITALS: BP 122/71
== END 2020-12-29 12:15 | disposition home health service (06) ==
LOC: EMEROOARM 12:53 → 3BNU 12:53 → SUATTDRO 17:14
PROVIDERS: ADMIT Student in an Organized Health Care Education/Training Program; ATTEND Internal Medicine